=== PATIENT | male | born 1950 | race Caucasian/White ===

== ENCOUNTER 2022-05-23 10:52 | Outpatient (CLI) | payer MEDICARE, SELFPAY ==
[2022-05-23 17:32] LABS: Chloride* 101 mmol/L (96-114); Sodium* 140 mmol/L (135-149)
[2022-05-23 17:33] LABS: Potassium* 4.7 mmol/L (3.6-5.1)
[2022-05-23 17:35] LABS: Blood Urea Nitrogen* 25 mg/dL (7-30); Carbon Dioxide* 29 mmol/L (20-32); Cholesterol* 209 mg/dL (90-199); Creatinine* 1.4 mg/dL (0.5-1.5); Estimated Glomerular Filt Rate 54 ml/min; Glucose* 105 mg/dL (60-115)
[2022-05-23 17:36] LABS: Calcium* 9.2 mg/dL (8.4-10.6); HDL Cholesterol* 29 mg/dL (>=40); LDL Cholesterol Calculated 130 mg/dL (<100); Triglycerides* 249 mg/dL (40-149)
== END 2022-05-23 10:53 | disposition home or self-care (01) ==
PROVIDERS: PCP Family Medicine; Visit Provider Family Medicine
DX: I10 Essential (primary) hypertension (principal); Z13.6 Encounter for screening for cardiovascular disorders
CPT/HCPCS: 80048; 80061

== ENCOUNTER 2022-11-26 12:02 | Outpatient (CLI) | payer MEDICARE, SELFPAY | END 2022-11-26 12:03 | disposition home or self-care (01) | PROVIDERS: PCP Family Medicine; Visit Provider Family Medicine | DX: I10 Essential (primary) hypertension (principal); I48.91 Unspecified atrial fibrillation; Z13.29 Encounter for screening for other suspected endocrine disorder | CPT/HCPCS: 80048; 84439; 84443 ==

== ENCOUNTER 2022-11-29 12:41 | Outpatient (CLI) | payer MEDICARE, SELFPAY ==
[2022-11-29] MEDS: PERFLUTREN LIPID MICROSPHERES 2 ML VIAL IV (13:49)
--- NOTE | 2022-11-29 13:50 | PC.NURSE ---
20g PIV placed in right AC. 3ml definity contrast used. Lot # [id number], exp 06-25-23. Pt tolerated well. IV discontinued.
== END 2022-11-29 12:42 | disposition home or self-care (01) ==
PROVIDERS: PCP Family Medicine; Visit Provider Family Medicine
DX: I48.91 Unspecified atrial fibrillation (principal); I51.7 Cardiomegaly; I35.1 Nonrheumatic aortic (valve) insufficiency; I34.0 Nonrheumatic mitral (valve) insufficiency
CPT/HCPCS: 93306; Q9957